=== PATIENT | female | born 1980 | race Two or more races ===

== ENCOUNTER 2018-12-08 12:13 | Emergency (ER) | payer OTHER ==
[2018-12-08 12:24] VITALS: BP 116/71; PULSE 68; TEMP 97.5; BMI 19.2
--- NOTE | 2018-12-08 12:39 | PDOC ---
History of Present Illness - General Chief Complaint: Eye Problem Stated Complaint: RT EYE PAIN Time Seen by Provider: 12/08/18 12:30 - History of Present Illness Initial Comments: 12/08/18 13:23 38 years old no significant past medical history presents to the ED with irritation to right eye this morning a strong burst of wind blew something into her right eye she has had tearing and pain to the right eye since then no change in vision symptoms are moderate persistent concent no exacerbating or alleviating factors. Past History - Past Medical History Allergies/Adverse Reactions: Allergies Allergy/AdvReac Type Severity Reaction Status Date / Time No Known Drug Allergies Allergy Unknown Verified 12/08/18 12:14 Home Medications: Ambulatory Orders NK [No Known Home Medication] 12/08/18 Asthma: No Cancer: No Cardiac Disorders: No COPD: No Diabetes: No HTN: No Seizures: No Thyroid Disease: No - Suicide/Smoking/Psychosocial Hx Smoking History: Never smoked Have you smoked in the past 12 months: No Information on smoking cessation initiated: No Hx Alcohol Use: No Drug/Substance Use Hx: No Hx Substance Use Treatment: No Review of Systems - Review of Systems Comments:: 12/08/18 13:23 ROS: A complete review of 10 out of 10 review of systems is taken and is negative apart from what is previously mentioned below and in the HPI. *Physical Exam - Vital Signs Last Vital Signs Temp Pulse Resp BP Pulse Ox 97.5 F L 68 20 116/71 100 12/08/18 12:13 12/08/18 12:13 12/08/18 12:13 12/08/18 12:13 12/08/18 12:13 - Physical Exam Comments: 12/08/18 13:24 Vitals: Triage Vital signs reviewed General Appearance: no acute distress, well nourished well developed, Head: Atraumatic, Eyes: Pupils equal reactive round, extraocular movement intact very slight floor seen uptake adjacent to the cornea small hazy area of possible fluorescein uptake over the heel aspect of the cornea, no foreign body noted Psych: normal mood, normal affect Moderate Sedation - Procedure Monitoring Vital Signs: Procedure Monitoring Vital Signs Temperature 97.5 F L 12/08/18 12:13 Pulse Rate 68 12/08/18 12:13 Respiratory Rate 20 12/08/18 12:13 Blood Pressure 116/71 12/08/18 12:13 O2 Sat by Pulse Oximetry (%) 100 12/08/18 12:13 Medical Decision Making - Medical Decision Making 12/08/18 13:24 No foreign body noted on eye examination fluorescein uptake adjacent to the cornea and there is a faint area of fluorescein uptake over the cornea does not involve the pupil Patient does not wear contact lenses for vision is unaffected with seven-day course of Cipro ophthalmic drops with ophthalmology follow-up Findings, need for follow-up and strict return instructions discussed with patient. *DC/Admit/Observation/Transfer Diagnosis at time of Disposition: Eye abrasion Qualifiers: Encounter type: initial encounter Laterality: right Qualified Code(s): S05.8X1A - Other injuries of right eye and orbit, initial encounter - Discharge Dispostion Disposition: HOME Decision to Admit order: No - Referrals Referrals: Jovon Angulo MD [Non Staff, Medical] - - Patient Instructions Printed Discharge Instructions: Eye Contusion Additional Instructions: Cipro drops 1-2 drops every 4 hours for the next 7 days. Follow-up with ophthalmology this week. Return to ED for any severe uncontrollable pain change in vision or for any concerns. - Post Discharge Activity
[2018-12-08] MEDS ORDERED: CIPROFLOXACIN 0.3% EYE DROPS 5 ML BOTTLE OP ONE (12:40)
[2018-12-08] MEDS ORDERED: CIPROFLOXACIN HCL 0.3% OPHTH 2.5ML BOTTLE ONE (12:42)
== END 2018-12-08 13:00 | disposition home or self-care (01) ==
LOC: FER 12:13
DX: S05.8X1A Other injuries of right eye and orbit, initial encounter (principal); W20.8XXA Other cause of strike by thrown, projected or falling object, initial encounter; Y93.89 Activity, other specified; Y92.89 Other specified places as the place of occurrence of the external cause
CPT/HCPCS: 99282-25